=== PATIENT | female | born 1955 | race Caucasian/White ===

== ENCOUNTER → 2018-04-28 | Outpatient (CLI) | payer OTHER | LOC: MC.RAD 16:26 | DX: Z12.31 Encounter for screening mammogram for malignant neoplasm of breast (principal) ==

== ENCOUNTER → 2020-01-20 | Outpatient (CLI) | payer OTHER | LOC: ZCOL.LAB 07:00 | DX: R05 Cough (principal); Z20.828 Contact with and (suspected) exposure to other viral communicable diseases ==

== ENCOUNTER → 2020-05-05 | Outpatient (CLI) | payer OTHER | LOC: MC.RAD 13:44 | DX: Z12.31 Encounter for screening mammogram for malignant neoplasm of breast (principal); N63.10 Unspecified lump in the right breast, unspecified quadrant ==

== ENCOUNTER → 2020-05-12 | Outpatient (CLI) | payer OTHER | LOC: MC.RAD 06:51 | DX: N63.10 Unspecified lump in the right breast, unspecified quadrant (principal) ==

== ENCOUNTER → 2020-06-13 | Outpatient (CLI) | payer OTHER | LOC: MC.RAD 09:54 | DX: N63.10 Unspecified lump in the right breast, unspecified quadrant (principal); Z98.82 Breast implant status | CPT/HCPCS: J2400 ==